=== PATIENT | male | born 1975 | race American Indian/Alaskan Native ===

== ENCOUNTER 2021-11-06 12:28 | Inpatient (IN) | payer SELFPAY ==
--- NOTE | 2021-11-06 13:43 | XRay Report ---
CHEST 2 VIEWS INDICATION: chest pain, hemoptysis. COMPARISON: None. FINDINGS: Support devices: None. Heart: Within normal limits. Lungs/Pleura: Masslike consolidation within the inferior aspect of the right upper lobe laterally. Le ft lung clear. No significant pleural effusion. IMPRESSION: Masslike infiltrate right upper lobe. Tumor versus infection. This could be better evalu ated with contrast-enhanced CT chest as clinically indicated. Signer Name: Samuel Mckinley MD Signed: 11/06/2021 1:38 PM Workstation Name: [employer]
[2021-11-06 14:58] LABS: Alanine Aminotransferase 20 units/L (7-56); BUN/Creatinine Ratio 10; Blood Urea Nitrogen 13 mg/dL (9-20); Calcium 8.9 mg/dL (8.4-10.2); Hemolysis Index 11
[2021-11-06 15:01] LABS: Hematocrit 46.2 % (35.5-45.6); Hemoglobin 14.8 gm/dl (11.8-15.2); Mean Corpuscular HGB Conc 32 % (32-34); Mean Corpuscular Volume 83 fl (84-94); Platelet Count 176 K/mm3 (140-440); Red Blood Count 5.53 M/mm3 (3.65-5.03); Red Cell Distribution Width 13.8 % (13.2-15.2)
[2021-11-06] MEDS ORDERED: SODIUM CHLORIDE 0.9% 1000 ML 1,000 ML IV ONE ×2 (15:27→17:39)
[2021-11-06] MEDS ORDERED: fentaNYL 100 MCG/2 ML INJ IV ONE (15:31)
--- NOTE | 2021-11-06 15:32 | Emergency Department Report ---
ED General Adult HPI - General Chief complaint: Chest Pain Stated complaint: CHEST PAIN/COUHING UP BLOOD Time Seen by Provider: 11/06/21 15:16 Source: patient Mode of arrival: Ambulatory Limitations: No Limitations - History of Present Illness Initial comments: Patient presents with a 4-day history of right-sided chest pain. Pain is pleuritic and sharp in nature. He cannot get comfortable. He does feel short of breath. He has had a cough and is actually been coughing up blood. This is been streaks and flecks of blood. He has had subjective fevers and chills. He has had trouble breathing. Pain does not radiate or migrate. It is only locali zed to the right side. He has no pain or swelling in the legs. There is no history of recent travel trauma. He has had no Covid exposure. - Related Data Allergies Allergy/AdvReac Type Severity Reaction Status Date / Time No Known Allergies Allergy Unverified 11/06/21 12:57 ED Review of Systems ROS: Stated complaint: CHEST PAIN/COUHING UP BLOOD Other details as noted in HPI Comment: All other systems reviewed and negative Constitutional: fever (Subjective) Eyes: denies: eye pain ENT: denies: throat pain Respiratory: see HPI Cardiovascular: as per HPI Endocrine: unexplained weight loss Gastrointestinal: denies: abdominal pain Genitourinary: denies: dysuria Musculoskeletal: denies: back pain Skin: denies: rash Neurological: denies: headache Hematological/Lymphatic: denies: easy bruising ED Past Medical Hx - Past Medical History Previous Medical History?: No - Family History Family history: no significant ED Physical Exam - General Limitations: No Limitations, Other (Pulse ox noted and normal which trends down) General appearance: alert, in distress (Uncomfortable) - Head Head exam: Present: atraumatic, normocephalic - Eye Eye exam: Present: normal appearance, PERRL, EOMI - ENT ENT exam: Present: normal orophraynx, normal external ear exam - Neck Neck exam: Present: normal inspection. Absent: meningismus - Respiratory Respiratory exam: Present: normal lung sounds bilaterally, respiratory distress (Mild) - Cardiovascular Cardiovascular Exam: Present: normal rhythm, tachycardia - GI/Abdominal GI/Abdominal exam: Present: soft. Absent: distended - Extremities Exam Extremities exam: Present: normal capillary refill - Back Exam Back exam: Absent: CVA tenderness (R), CVA tenderness (L) - Neurological Exam Neurological exam: Present: alert, oriented X3, CN II-XII intact, normal gait. Absent: motor sensory deficit - Psychiatric Psychiatric exam: Present: normal affect, normal mood - Skin Skin exam: Present: warm, dry ED Course Vital Signs 11/06/21 11/06/21 11/06/21 12:59 15:17 15:31 Temperature 99.4 F Pulse Rate 120 H 115 H Respiratory 20 30 H Rate Blood Pressure 113/74 135/84 O2 Sat by Pulse 98 97 97 Oximetry 11/06/21 11/06/21 11/06/21 15:45 16:01 16:15 Temperature Pulse Rate 117 H 113 H 113 H Respiratory 35 H 29 H 25 H Rate Blood Pressure 124/78 137/81 125/81 O2 Sat by Pulse 97 96 96 Oximetry 11/06/21 11/06/21 11/06/21 16:30 16:45 17:01 Temperature Pulse Rate 119 H 120 H 117 H Respiratory 30 H 33 H 26 H Rate Blood Pressure 125/81 O2 Sat by Pulse 94 98 95 Oximetry 11/06/21 11/06/21 11/06/21 17:15 17:31 17:44 Temperature 101.1 F H Pulse Rate 120 H 119 H Respiratory 22 27 H Rate Blood Pressure 133/74 O2 Sat by Pulse 95 94 Oximetry 11/06/21 11/06/21 11/06/21 17:45 18:01 18:15 Temperature Pulse Rate 122 H 117 H 119 H Respiratory 25 H 35 H 32 H Rate Blood Pressure 133/74 140/81 140/81 O2 Sat by Pulse 95 97 78 L Oximetry - Reevaluation(s) Reevaluation #1: 11/06/21 15:32 CT was ordered. Labs noted. Reevaluation #2: 11/06/21 18:41 CT has now been noted. Blood cultures and lactate have been ordered. He does h ave features of sepsis but no evidence of severe sepsis or septic shock. Antibiotics have been ordered. Case was discussed with the hospitalist and he will admit ED Medical Decision Making - Lab Data Result diagrams: 11/06/21 14:21 11/06/21 14:21 Rhythm strip: Sinus tachycardia without ectopy per monitor observe 10 seconds. - EKG Data -: EKG Interpreted by [facility] - EKG Data When compared to previous EKG there are: previous EKG unavailable 11/06/21 17:01 1304-EKG shows sinus tachycardia at 120. QRS is normal at 83. QT corrected is normal at 387. There is ST depression in 2 with T wave inversions in 3 and aVF. Patient has ST depression with T wave inversions in V4 through V6. There is no ST elevation to suggest STEMI. - Radiology Data Radiology results: report reviewed - Medical Decision Making Patient presents with right-sided chest pain. He had fever and leukocytosis. He has evidence of sepsis with a lobar pneumonia. He will be admitted for ongoing treatment and management. There is no clinical suspicion for pulmonary embolism. There is no pulmonary infarct. There is no tumor. Critical Care Time: No Critical care attestation.: If time is entered above; I have spent that time in minutes in the direct care of this critically ill patient, excluding procedure time. ED Disposition Clinical Impression: Right upper lobe pneumonia, Sepsis Disposition: ADMITTED INPATIENT Is pt being admited?: Yes Condition: Stable Instructions: Bacterial Pneumonia (ED)
[2021-11-06 16:20] LABS: Band Neutrophils # (Manual) 2.1 K/mm3; Basophils % (Manual) 0 % (0.0-1.8); Eosinophils % (Manual) 0 % (0.0-4.3); Large Platelets Few; Platelet Estimate Consistent w Auto; RBC Morphology Normal; Total Cells Counted 100; Toxic Granulation 1+
[2021-11-06] MEDS ORDERED: ACETAMINOPHEN 500 MG TAB PO ONE (17:40)
--- NOTE | 2021-11-06 18:23 | Cat Scan Report ---
CT CHEST WITH CONTRAST INDICATION / CLINICAL INFORMATION: abnormal cxr. TECHNIQUE: Axial CT images were obtained through the chest after Omnipaque 300, 100 cc IV contrast. A ll CT scans at this location are performed using CT dose reduction for ALARA by means of automated ex posure control. COMPARISON: None available. FINDINGS: HEART: No significant abnormality. CORONARY ARTERY CALCIFICATION: None. THORACIC AORTA: No significant abnormality. MEDIASTINUM / AUBREY: Prominent nodes at the right paratracheal region with the largest measuring 1.7 c m in the greatest short axis dimension. PLEURA: No pleural effusion. No pneumothorax. LUNGS: Dense lobar pneumonia inferior aspect right upper lobe. ADDITIONAL FINDINGS: None. UPPER ABDOMEN: Large, fatty liver. SKELETAL SYSTEM: No significant abnormality. IMPRESSION: 1. Lobar pneumonia right upper lobe inferiorly. Recommend follow-up to ensure clearing. 2. Enlarged mediastinal nodes are likely reactive. Signer Name: Samuel Mckinley MD Signed: 11/06/2021 6:18 PM Workstation Name: [id number]
[2021-11-06] MEDS ORDERED: SODIUM CHLORIDE 0.9% 1000 ML IV SOLN IV ONE (18:33)
[2021-11-06] MEDS ORDERED: AZITHROMYCIN/NS 500 MG/250 ML 500 MG/250 ML BAG IV ONE (18:33)
--- NOTE | 2021-11-06 20:32 | History and Physical Report ---
History of Present Illness Date of examination: 11/06/21 Date of admission: 2021 Chief complaint: Right upper chest pain and cough for 1 day History of present illness: 46-year-old -[place] male with no significant past medical history presents with 4-day history of right-sided chest pain which is sharp in nature. Cannot get comfortable. Also feels short of breath. Cough occasionally productive of blood-tinged sputum. Fever and chills present. Patient has had trouble breathing. Pain does not radiate. No diaphoresis. No left-sided chest pain. No nausea or vomiting. No significant past medical history. Pain is more with a deep inspiration. - Past Medical History Previous Medical History?: No Past surgical history No - Family History Family history: no significant social history no significant Review of Systems ROS: Stated complaint: CHEST PAIN/COUHING UP BLOOD Other details as noted in HPI Comment: All other systems reviewed and negative Constitutional: fever (Subjective) Eyes: denies: eye pain ENT: denies: throat pain Respiratory: see HPI Cardiovascular: as per HPI Endocrine: unexplained weight loss Gastrointestinal: denies: abdominal pain Genitourinary: denies: dysuria Musculoskeletal: denies: back pain Skin: denies: rash Neurological: denies: headache Hematological/Lymphatic: denies: easy bruising Medications and Allergies Allergies Allergy/AdvReac Type Severity Reaction Status Date / Time No Known Allergies Allergy Unverified 11/06/21 12:57 Home Medications Medication Instructions Recorded Confirmed Last Taken Type No Known Home Medications [No 11/06/21 11/06/21 Unknown History Reported Home Medications] Exam - Constitutional Vitals: Temp Pulse Resp BP Pulse Ox 101.1 F H 107 H 18 121/67 95 11/06/21 17:44 11/06/21 19:37 11/06/21 19:37 11/06/21 19:37 11/06/21 19:37 General appearance: Present: mild distress, well-nourished - EENT Eyes: Present: PERRL ENT: hearing intact, clear oral mucosa - Neck Neck: Present: supple, normal ROM - Respiratory Respiratory effort: normal Respiratory: right: rales (Right influenza clavicle region), bilateral: CTA, rhonchi - Cardiovascular Heart rate: 98 Rhythm: regular Heart Sounds: Present: S1 & S2. Absent: rub, click - Extremities Extremities: pulses symmetrical, No edema Peripheral Pulses: within normal limits - Abdominal General gastrointestinal: Present: soft, non-tender, non-distended, normal bowel sounds Male genitourinary: Present: normal - Rectal Rectal Exam: deferred - Integumentary Integumentary: Present: clear, warm, dry - Musculoskeletal Musculoskeletal: gait normal, strength equal bilaterally - Psychiatric Psychiatric: appropriate mood/affect, intact judgment & insight - Neurologic Neurologic: CNII-XII intact, moves all extremities HEART Score - HEART Score Troponin: Troponin T < 0.010 ng/mL (0.00-0.029) 11/06/21 14:21 Results - Labs CBC & Chem 7: 11/07/21 06:08 11/06/21 14:21 Labs: Laboratory Last Values WBC 26.5 K/mm3 (4.5-11.0) H 11/06/21 14:21 RBC 5.53 M/mm3 (3.65-5.03) H 11/06/21 14:21 Hgb 14.8 gm/dl (11.8-15.2) 11/06/21 14:21 Hct 46.2 % (35.5-45.6) H 11/06/21 14:21 MCV 83 fl (84-94) L 11/06/21 14:21 MCH 27 pg (28-32) L 11/06/21 14:21 MCHC 32 % (32-34) 11/06/21 14:21 RDW 13.8 % (13.2-15.2) 11/06/21 14:21 Plt Count 176 K/mm3 (140-440) 11/06/21 14:21 Add Manual Diff Complete 11/06/21 14:21 Total Counted 100 11/06/21 14:21 Seg Neuts % (Manual) 74.0 % (40.0-70.0) H 11/06/21 14:21 Band Neutrophils % 8.0 % 11/06/21 14:21 Lymphocytes % (Manual) 7.0 % (13.4-35.0) L 11/06/21 14:21 Reactive Lymphs % (Man) 0 % 11/06/21 14:21 Monocytes % (Manual) 9.0 % (0.0-7.3) H 11/06/21 14:21 Eosinophils % (Manual) 0 % (0.0-4.3) 11/06/21 14:21 Basophils % (Manual) 0 % (0.0-1.8) 11/06/21 14:21 Metamyelocytes % 2.0 % 11/06/21 14:21 Myelocytes % 0 % 11/06/21 14:21 Promyelocytes % 0 % 11/06/21 14:21 Blast Cells % 0 % 11/06/21 14:21 Nucleated RBC % Not Reportable 11/06/21 14:21 Seg Neutrophils # Man 19.6 K/mm3 (1.8-7.7) H 11/06/21 14:21 Band Neutrophils # 2.1 K/mm3 11/06/21 14:21 Lymphocytes # (Manual) 1.9 K/mm3 (1.2-5.4) 11/06/21 14:21 Abs React Lymphs (Man) 0.0 K/mm3 11/06/21 14:21 Monocytes # (Manual) 2.4 K/mm3 (0.0-0.8) H 11/06/21 14:21 Eosinophils # (Manual) 0.0 K/mm3 (0.0-0.4) 11/06/21 14:21 Basophils # (Manual) 0.0 K/mm3 (0.0-0.1) 11/06/21 14:21 Metamyelocytes # 0.5 K/mm3 11/06/21 14:21 Myelocytes # 0.0 K/mm3 11/06/21 14:21 Promyelocytes # 0.0 K/mm3 11/06/21 14:21 Blast Cells # 0.0 K/mm3 11/06/21 14:21 WBC Morphology Not Reportable 11/06/21 14:21 Hypersegmented Neuts Not Reportable 11/06/21 14:21 Hyposegmented Neuts Not Reportable 11/06/21 14:21 Hypogranular Neuts Not Reportable 11/06/21 14:21 Smudge Cells Not Reportable 11/06/21 14:21 Toxic Granulation 1+ 11/06/21 14:21 Toxic Vacuolation Not Reportable 11/06/21 14:21 Dohle Bodies Not Reportable 11/06/21 14:21 Pelger-Huet Anomaly Not Reportable 11/06/21 14:21 Christina Rods Not Reportable 11/06/21 14:21 Platelet Estimate Consistent w auto 11/06/21 14:21 Clumped Platelets Not Reportable 11/06/21 14:21 Plt Clumps, EDTA Not Reportable 11/06/21 14:21 Large Platelets Few 11/06/21 14:21 Giant Platelets Not Reportable 11/06/21 14:21 Platelet Satelliting Not Reportable 11/06/21 14:21 Plt Morphology Comment Not Reportable 11/06/21 14:21 RBC Morphology Normal 11/06/21 14:21 Dimorphic RBCs Not Reportable 11/06/21 14:21 Polychromasia Not Reportable 11/06/21 14:21 Hypochromasia Not Reportable 11/06/21 14:21 Poikilocytosis Not Reportable 11/06/21 14:21 Anisocytosis Not Reportable 11/06/21 14:21 Microcytosis Not Reportable 11/06/21 14:21 Macrocytosis Not Reportable 11/06/21 14:21 Spherocytes Not Reportable 11/06/21 14:21 Pappenheimer Bodies Not Reportable 11/06/21 14:21 Sickle Cells Not Reportable 11/06/21 14:21 Target Cells Not Reportable 11/06/21 14:21 Tear Drop Cells Not Reportable 11/06/21 14:21 Ovalocytes Not Reportable 11/06/21 14:21 Helmet Cells Not Reportable 11/06/21 14:21 Adams-Kon[place] Bodies Not Reportable 11/06/21 14:21 Whitney Rings Not Reportable 11/06/21 14:21 [place] Cells Not Reportable 11/06/21 14:21 Bite Cells Not Reportable 11/06/21 14:21 Crenated Cell Not Reportable 11/06/21 14:21 Elliptocytes Not Reportable 11/06/21 14:21 Acanthocytes (Spur) Not Reportable 11/06/21 14:21 Rouleaux Not Reportable 11/06/21 14:21 Hemoglobin C Crystals Not Reportable 11/06/21 14:21 Schistocytes Not Reportable 11/06/21 14:21 Malaria parasites Not Reportable 11/06/21 14:21 Antonio Bodies Not Reportable 11/06/21 14:21 Hem Pathologist Commnt No 11/06/21 14:21 Sodium 132 mmol/L (137-145) L 11/06/21 14:21 Potassium 3.8 mmol/L (3.6-5.0) 11/06/21 14:21 Chloride 94.2 mmol/L (98-107) L 11/06/21 14:21 Carbon Dioxide 21 mmol/L (22-30) L 11/06/21 14:21 Anion Gap 21 mmol/L 11/06/21 14:21 BUN 13 mg/dL (9-20) 11/06/21 14:21 Creatinine 1.3 mg/dL (0.8-1.3) 11/06/21 14:21 Estimated GFR > 60 ml/min 11/06/21 14:21 BUN/Creatinine Ratio 10 % 11/06/21 14:21 Glucose 142 mg/dL (75-100) H 11/06/21 14:21 Lactic Acid 2.30 mmol/L (0.7-2.0) H* 11/06/21 18:41 Calcium 8.9 mg/dL (8.4-10.2) 11/06/21 14:21 Total Bilirubin 1.70 mg/dL (0.1-1.2) H 11/06/21 14:21 AST 19 units/L (5-40) 11/06/21 14:21 ALT 20 units/L (7-56) 11/06/21 14:21 Alkaline Phosphatase 74 units/L (35-129) 11/06/21 14:21 Troponin T < 0.010 ng/mL (0.00-0.029) 11/06/21 14:21 Total Protein 8.1 g/dL (6.3-8.2) 11/06/21 14:21 Albumin 4.0 g/dL (3.9-5) 11/06/21 14:21 Albumin/Globulin Ratio 1.0 % 11/06/21 14:21 Short CBC 11/06/21 Range/Units 14:21 WBC 26.5 H (4.5-11.0) K/mm3 Hgb 14.8 (11.8-15.2) gm/dl Hct 46.2 H (35.5-45.6) % Plt Count 176 (140-440) K/mm3 BMP 11/06/21 14:21 Sodium 132 L Potassium 3.8 Chloride 94.2 L Carbon Dioxide 21 L BUN 13 Creatinine 1.3 Glucose 142 H Calcium 8.9 Cardiac Enzymes 11/06/21 Range/Units 14:21 Troponin T < 0.010 (0.00-0.029) ng/mL Liver Function 11/06/21 Range/Units 14:21 Total Bilirubin 1.70 H (0.1-1.2) mg/dL AST 19 (5-40) units/L ALT 20 (7-56) units/L Alkaline Phosphatase 74 (35-129) units/L Albumin 4.0 (3.9-5) g/dL - Imaging and Cardiology EKG: report reviewed Chest x-ray: report reviewed Imaging and Cardiology: Chest x-ray Masslike infiltrate right upper lobe. Tumor versus infection. This could be better evaluated with contrast-enhanced CT chest as clinically indicated 6 CT of the chest with contrast Lobar pneumonia right upper lobe inferiorly. Recommend follow-up to ensure clearing Enlarged mediastinal nodes are likely reactive Assessment and Plan Advance Directives: Yes (Full code) VTE prophylaxis?: Chemical Plan of care discussed with patient/family: Yes - Patient Problems (1) Acute respiratory failure with hypoxia Current Visit: Yes Status: Acute Plan to address problem: Patient is hypoxic on room air Improved with 2 to 3 L of nasal cannula oxygen Right upper lobe pneumonia (2) Right upper lobe pneumonia Current Visit: Yes Status: Acute Plan to address problem: Patient initiated on IV Zithromax and IV ceftriaxone Community-acquired pneumonia COVID to be ruled out Unlikely (3) Sepsis Current Visit: Yes Status: Acute Plan to address problem: Patient has a high white count No hypotension IV antibiotics for now Lactic acid elevated (4) DVT prophylaxis Current Visit: Yes Status: Acute Plan to address problem: On anticoagulation and GI prophylaxis (5) Advance care planning Current Visit: Yes Status: Acute Plan to address problem: Disease education conducted, care plan discussed, diagnosis discussed, prognosis discussed. Patient is full code. Patient acknowledges understanding and agreement with care plan. +30 minutes.
[2021-11-06] MEDS ORDERED: ACETAMINOPHEN 325 MG TAB PO PRN (20:39)
[2021-11-06] MEDS ORDERED: ONDANSETRON 4 MG/2 ML INJ IV PRN (20:39)
[2021-11-06] MEDS ORDERED: METOCLOPRAMIDE 10 MG/2 ML INJ IV PRN (20:42)
[2021-11-06] MEDS ORDERED: oxyCODONE /ACETAMINOPHEN 5-325MG TAB PO PRN (20:42)
[2021-11-06] MEDS ORDERED: MORPHINE 2 MG/1 ML INJ IV PRN (20:42)
[2021-11-06] MEDS ORDERED: SODIUM CHLORIDE 0.9% 1000 ML 1,000 ML IV SCH (20:45)
[2021-11-06] MEDS ORDERED: IPRATROPIUM/ALBUTEROL SULFATE 3 ML AMPUL.NEB IH PRN (20:46)
[2021-11-06] MEDS ORDERED: cefTRIAXone/NS 2 GM/100 ML 2 GM/100 ML BAG IV SCH (21:00)
[2021-11-06] MEDS ORDERED: AZITHROMYCIN/NS 500 MG/250 ML 500 MG/250 ML BAG IV SCH (21:00)
[2021-11-06] MEDS: HEPARIN 5,000 UNIT/1 ML VIAL SUB-Q SCH (22:57)
[2021-11-06] MEDS: dexAMETHasone 4 MG/ML VIAL IV SCH (22:57)
[2021-11-07] MEDS ORDERED: SODIUM CHLORIDE 0.9% 1000 ML 1,000 ML IV ONE (00:10)
[2021-11-07 06:27] LABS: Hematocrit 40.6 % (35.5-45.6); Hemoglobin 13.8 gm/dl (11.8-15.2); Mean Corpuscular HGB Conc 34 % (32-34); Mean Corpuscular Volume 83 fl (84-94); Platelet Count 157 K/mm3 (140-440); Red Blood Count 4.89 M/mm3 (3.65-5.03); Red Cell Distribution Width 13.7 % (13.2-15.2)
[2021-11-07 07:08] LABS: Alanine Aminotransferase 19 units/L (7-56); Albumin 3.6 g/dL (3.9-5); BUN/Creatinine Ratio 13; Blood Urea Nitrogen 13 mg/dL (9-20); Calcium 8.7 mg/dL (8.4-10.2); Hemolysis Index 1
[2021-11-07 07:17] LABS: Total Cells Counted 100
[2021-11-07 07:27] LABS: Band Neutrophils # (Manual) 6.7 K/mm3; Basophils % (Manual) 0 % (0.0-1.8); Eosinophils % (Manual) 0 % (0.0-4.3); Myelocytes # (Manual) 0.2 K/mm3
[2021-11-07 07:29] LABS: Large Platelets Few; Platelet Estimate Consistent w Auto; RBC Morphology Normal
--- NOTE | 2021-11-07 08:45 | Progress Note ---
Assessment and Plan Assessment and plan: (1) Acute respiratory failure with hypoxia Current Visit: Yes Status: Acute Plan to address problem: Patient is hypoxic on room air on admissoin Was initially on 2-3 L NC, now on room air again resting comfortably. Right upper lobe pneumonia (3) Severe Sepsis POA Current Visit: Yes Status: Acute Plan to address problem: leukocytosis 26K on admission, LA: 2.3 on admission. febrile, tachycardic No hypotension BCx, SCx, UCx IV Ceftriaxone and IV azithromycin IV fluids given on admission, can tolerate po, encourage po hydration. (2) Right upper lobe pneumonia Current Visit: Yes Status: Acute Plan to address problem: Community-acquired pneumonia CT Chest: Duoneb prn COVID negative Patient initiated on IV Zithromax and IV ceftriaxone (4) DVT prophylaxis Current Visit: Yes Status: Acute Plan to address problem: On anticoagulation and GI prophylaxis (5) Advance care planning Current Visit: Yes Status: Acute Plan to address problem: Disease education conducted, care plan discussed, diagnosis discussed, prognosis discussed. Patient is full code. Patient acknowledges understanding and agreement with care plan. +30 minutes. Dispo: Observe overnight. Plan for early discharge tomorrow AM. History Interval history: Doing well on encounter. Denies any issues with shortness of breath, fevers, chills. Hospitalist Physical - Physical exam Narrative exam: Physical Exam: VITAL SIGNS: Reviewed. GENERAL: The patient appears normally developed, Vital signs as documented. HEAD: No signs of head trauma. EYES: Pupils are equal. Extraocular motions intact. EARS: Hearing grossly intact. MOUTH: Oropharynx is normal. NECK: No adenopathy, no JVD. CHEST: Poor air movement in right upper lobe. CARDIAC: Regular rate and rhythm. S1 and S2, without murmurs, gallops, or rubs. VASCULAR: No Edema. Peripheral pulses normal and equal in all extremities. ABDOMEN: Soft, non tender and non distended. No rebound or guarding, and no masses palpated. Bowel Sounds normal. MUSCULOSKELETAL: Good range of motion of all major joints. Extremities without clubbing, cyanosis or edema. NEUROLOGIC EXAM: Alert and oriented x 4. no focal sensory or strength deficits. PSYCHIATRIC: Mood normal. SKIN: detail exam as documented in skin assessment - Constitutional Vitals: Temp Pulse Resp BP Pulse Ox 98.1 F 89 16 139/50 94 11/07/21 05:11 11/07/21 05:11 11/07/21 05:11 11/07/21 05:11 11/07/21 05:11 General appearance: Present: mild distress, well-nourished HEART Score - HEART Score Troponin: Troponin T < 0.010 ng/mL (0.00-0.029) 11/06/21 14:21 Results - Labs CBC & Chem 7: 11/07/21 06:08 11/07/21 06:08 Labs: Laboratory Last Values WBC 23.8 K/mm3 (4.5-11.0) H 11/07/21 06:08 RBC 4.89 M/mm3 (3.65-5.03) 11/07/21 06:08 Hgb 13.8 gm/dl (11.8-15.2) 11/07/21 06:08 Hct 40.6 % (35.5-45.6) 11/07/21 06:08 MCV 83 fl (84-94) L 11/07/21 06:08 MCH 28 pg (28-32) 11/07/21 06:08 MCHC 34 % (32-34) 11/07/21 06:08 RDW 13.7 % (13.2-15.2) 11/07/21 06:08 Plt Count 157 K/mm3 (140-440) 11/07/21 06:08 Add Manual Diff Complete 11/07/21 06:08 Total Counted 100 11/07/21 06:08 Seg Neutrophils % Sales And Service Associate 11/07/21 06:08 Seg Neuts % (Manual) 61.0 % (40.0-70.0) 11/07/21 06:08 Band Neutrophils % 28.0 % 11/07/21 06:08 Lymphocytes % (Manual) 3.0 % (13.4-35.0) L 11/07/21 06:08 Reactive Lymphs % (Man) 2.0 % 11/07/21 06:08 Monocytes % (Manual) 2.0 % (0.0-7.3) 11/07/21 06:08 Eosinophils % (Manual) 0 % (0.0-4.3) 11/07/21 06:08 Basophils % (Manual) 0 % (0.0-1.8) 11/07/21 06:08 Metamyelocytes % 3.0 % 11/07/21 06:08 Myelocytes % 1.0 % 11/07/21 06:08 Promyelocytes % 0 % 11/07/21 06:08 Blast Cells % 0 % 11/07/21 06:08 Nucleated RBC % Not Reportable 11/07/21 06:08 Seg Neutrophils # Man 14.5 K/mm3 (1.8-7.7) H 11/07/21 06:08 Band Neutrophils # 6.7 K/mm3 11/07/21 06:08 Lymphocytes # (Manual) 0.7 K/mm3 (1.2-5.4) L 11/07/21 06:08 Abs React Lymphs (Man) 0.5 K/mm3 11/07/21 06:08 Monocytes # (Manual) 0.5 K/mm3 (0.0-0.8) 11/07/21 06:08 Eosinophils # (Manual) 0.0 K/mm3 (0.0-0.4) 11/07/21 06:08 Basophils # (Manual) 0.0 K/mm3 (0.0-0.1) 11/07/21 06:08 Metamyelocytes # 0.7 K/mm3 11/07/21 06:08 Myelocytes # 0.2 K/mm3 11/07/21 06:08 Promyelocytes # 0.0 K/mm3 11/07/21 06:08 Blast Cells # 0.0 K/mm3 11/07/21 06:08 WBC Morphology Not Reportable 11/07/21 06:08 Hypersegmented Neuts Not Reportable 11/07/21 06:08 Hyposegmented Neuts Not Reportable 11/07/21 06:08 Hypogranular Neuts Not Reportable 11/07/21 06:08 Smudge Cells Not Reportable 11/07/21 06:08 Toxic Granulation Not Reportable 11/07/21 06:08 Toxic Vacuolation Not Reportable 11/07/21 06:08 Dohle Bodies Not Reportable 11/07/21 06:08 Pelger-Huet Anomaly Not Reportable 11/07/21 06:08 Christina Rods Not Reportable 11/07/21 06:08 Platelet Estimate Consistent w auto 11/07/21 06:08 Clumped Platelets Not Reportable 11/07/21 06:08 Plt Clumps, EDTA Not Reportable 11/07/21 06:08 Large Platelets Few 11/07/21 06:08 Giant Platelets Not Reportable 11/07/21 06:08 Platelet Satelliting Not Reportable 11/07/21 06:08 Plt Morphology Comment Not Reportable 11/07/21 06:08 RBC Morphology Normal 11/07/21 06:08 Dimorphic RBCs Not Reportable 11/07/21 06:08 Polychromasia Not Reportable 11/07/21 06:08 Hypochromasia Not Reportable 11/07/21 06:08 Poikilocytosis Not Reportable 11/07/21 06:08 Anisocytosis Not Reportable 11/07/21 06:08 Microcytosis Not Reportable 11/07/21 06:08 Macrocytosis Not Reportable 11/07/21 06:08 Spherocytes Not Reportable 11/07/21 06:08 Pappenheimer Bodies Not Reportable 11/07/21 06:08 Sickle Cells Not Reportable 11/07/21 06:08 Target Cells Not Reportable 11/07/21 06:08 Tear Drop Cells Not Reportable 11/07/21 06:08 Ovalocytes Not Reportable 11/07/21 06:08 Helmet Cells Not Reportable 11/07/21 06:08 [place] Bodies Not Reportable 11/07/21 06:08 [place] Rings Not Reportable 11/07/21 06:08 [place] Cells Not Reportable 11/07/21 06:08 Bite Cells Not Reportable 11/07/21 06:08 Crenated Cell Not Reportable 11/07/21 06:08 Elliptocytes Not Reportable 11/07/21 06:08 Acanthocytes (Spur) Not Reportable 11/07/21 06:08 Rouleaux Not Reportable 11/07/21 06:08 Hemoglobin C Crystals Not Reportable 11/07/21 06:08 Schistocytes Not Reportable 11/07/21 06:08 Malaria parasites Not Reportable 11/07/21 06:08 [place] Bodies Not Reportable 11/07/21 06:08 Hem Pathologist Commnt No 11/07/21 06:08 D-Dimer 474.84 ng/mlDDU (0-234) H 11/07/21 07:51 Sodium 134 mmol/L (137-145) L 11/07/21 06:08 Potassium 3.7 mmol/L (3.6-5.0) 11/07/21 06:08 Chloride 98.9 mmol/L (98-107) 11/07/21 06:08 Carbon Dioxide 22 mmol/L (22-30) 11/07/21 06:08 Anion Gap 17 mmol/L 11/07/21 06:08 BUN 13 mg/dL (9-20) 11/07/21 06:08 Creatinine 1.0 mg/dL (0.8-1.3) 11/07/21 06:08 Estimated GFR > 60 ml/min 11/07/21 06:08 BUN/Creatinine Ratio 13 % 11/07/21 06:08 Glucose 201 mg/dL (75-100) H 11/07/21 06:08 Lactic Acid 2.50 mmol/L (0.7-2.0) H* 11/07/21 06:47 Calcium 8.7 mg/dL (8.4-10.2) 11/07/21 06:08 Ferritin 403.3 ng/mL (30.0-300.0) H 11/07/21 07:51 Total Bilirubin 1.30 mg/dL (0.1-1.2) H 11/07/21 06:08 AST 17 units/L (5-40) 11/07/21 06:08 ALT 19 units/L (7-56) 11/07/21 06:08 Alkaline Phosphatase 71 units/L (35-129) 11/07/21 06:08 Lactate Dehydrogenase 145 units/L (91-180) 11/07/21 06:08 Troponin T < 0.010 ng/mL (0.00-0.029) 11/06/21 14:21 Total Protein 7.5 g/dL (6.3-8.2) 11/07/21 06:08 Albumin 3.6 g/dL (3.9-5) L 11/07/21 06:08 Albumin/Globulin Ratio 0.9 % 11/07/21 06:08 Microbiology: Microbiology 11/06/21 18:41 Peripheral/Venous Blood Culture - Preliminary Culture in Progress 11/06/21 18:50 Peripheral/Venous Blood Culture - Preliminary Culture in Progress Mann/IV: Voiding Method Toilet Active Medications - Current Medications Current Medications: Generic Name Dose Route Start Last Admin Trade Name Freq PRN Reason Stop Dose Admin Acetaminophen 650 mg 11/06/21 20:39 Acetaminophen 325 Mg Tab PO Q4H PRN Pain MILD(1-3)/Fever >100.5/COLLIER Albuterol/Ipratropium 1 ampul 11/06/21 20:46 Ipratropium/Albuterol Sulfate 3 Ml Ampul.Neb IH Q3H PRN Wheezing Azithromycin 500 mg 11/07/21 22:00 Azithromycin 250 Mg Tab PO 11/10/21 22:01 QHS LISA Dexamethasone 8 mg 11/06/21 21:00 11/06/21 22:57 Dexamethasone 4 Mg/Ml Vial IV 8 mg Q24H LISA Administration Heparin Sodium (Porcine) 5,000 unit 11/06/21 22:00 11/06/21 22:57 Heparin 5,000 Unit/1 Ml Vial SUB-Q 5,000 unit Q12HR LISA Administration Ceftriaxone Sodium 2 gm in 100 mls @ 200 mls/hr 11/07/21 22:00 Rocephin/Ns 2 Gm/100 Ml IV 11/10/21 22:29 Q24H [facility] Protocol Metoclopramide HCl 10 mg 11/06/21 20:42 Metoclopramide 10 Mg/2 Ml Inj IV Q6H PRN Nausea And Vomiting Morphine Sulfate 2 mg 11/06/21 20:42 Morphine 2 Mg/1 Ml Inj IV Q4H PRN Pain, Moderate (4-6) Ondansetron HCl 4 mg 11/06/21 20:39 Ondansetron 4 Mg/2 Ml Inj IV Q3H PRN Nausea And Vomiting Oxycodone/Acetaminophen 1 tab 11/06/21 20:42 Oxycodone /Acetaminophen 5-325mg Tab PO Q6H PRN Pain, Moderate (4-6) Sodium Chloride 10 ml 11/06/21 22:00 11/06/21 22:57 Sodium Chloride 0.9% 10 Ml Flush Syringe IV 10 ml BID LISA Administration Sodium Chloride 10 ml 11/06/21 20:39 Sodium Chloride 0.9% 10 Ml Flush Syringe IV PRN PRN LINE FLUSH
--- NOTE | 2021-11-07 09:23 | Electrocardiograph Report ---
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
[2021-11-07] MEDS: HEPARIN 5,000 UNIT/1 ML VIAL SUB-Q SCH ×2 (09:36→21:54)
[2021-11-07 09:48] LABS: C-Reactive Protein 36.6 mg/dL (0.00-1.30)
[2021-11-07] MEDS ORDERED: AZITHROMYCIN/NS 500 MG/250 ML 500 MG/250 ML BAG IV SCH (19:30)
[2021-11-07 21:45] VITALS: BP 122/83
[2021-11-07] MEDS: dexAMETHasone 4 MG/ML VIAL IV SCH (21:53)
[2021-11-07] MEDS ORDERED: AZITHROMYCIN 250 MG TAB PO SCH (22:00)
[2021-11-07] MEDS ORDERED: cefTRIAXone/NS 2 GM/100 ML 2 GM/100 ML BAG IV SCH (22:00)
[2021-11-08 05:46] LABS: Basophils % (Auto) 0.1 % (0.0-1.8); Hematocrit 41.7 % (35.5-45.6); Hemoglobin 13.9 gm/dl (11.8-15.2); Mean Corpuscular HGB Conc 33 % (32-34); Mean Corpuscular Volume 84 fl (84-94); Platelet Count 178 K/mm3 (140-440); Red Blood Count 4.97 M/mm3 (3.65-5.03); Red Cell Distribution Width 13.9 % (13.2-15.2)
[2021-11-08 05:52] LABS: BUN/Creatinine Ratio 17; Blood Urea Nitrogen 15 mg/dL (9-20); Hemolysis Index 5
--- NOTE | 2021-11-08 08:54 | Discharge Summary ---
Providers - Providers Date of Admission: 11/06/21 20:39 Date of discharge: 11/08/21 Attending physician: MARK REZA MD Primary care physician: FLOORWALKER Hospitalization Reason for admission: Shortness of breath Condition: Stable Hospital course: HPI History of present illness: 46-year-old -[place] male with no significant past medical history presents with 4-day history of right-sided chest pain which is sharp in nature. Cannot get comfortable. Also feels short of breath. Cough occasionally product drew of blood-tinged sputum. Fever and chills present. Patient has had trouble breathing. Pain does not radiate. No diaphoresis. No left-sided chest pain. No nausea or vomiting. No significant past medical history. Pain is more with a deep inspiration. Hospital Course Patient was admitted for shortness of breath secondary to sepsis/community- acquired pneumonia. Patient was febrile T-max 101.1F, leukocytosis on admission 26,000, chest x-ray and CT chest confirmatory for right upper lobe pneumonia. Patient was placed initially on nasal cannula 2 L/min. He was initiated on ceftriaxone IV and azithromycin IV. Blood culture, sputum culture demonstrated no growth on this admission. Coronavirus RT-PCR negative. Patient was eventually deescalated off nasal cannula on room air saturating 98% at the time of discharge. He will be discharged home with prescription for azithromycin x3- day for completion of total 5-day therapy. Medication was transmitted to his pharmacy. He was advised to follow-up with his primary care doctor in 3 to 5 days. (1) Acute respiratory failure with hypoxia Current Visit: Yes Status: Acute Plan to address problem: Patient is hypoxic on room air on admissoin Was initially on 2-3 L NC, now on room air again resting comfortably. Right upper lobe pneumonia (3) Severe Sepsis POA Current Visit: Yes Status: Acute Plan to address problem: leukocytosis 26K on admission, LA: 2.3 on admission. febrile, tachycardic No hypotension BCx, SCx, UCx IV Ceftriaxone and IV azithromycin IV fluids given on admission, can tolerate po, encourage po hydration. (2) Right upper lobe pneumonia Current Visit: Yes Status: Acute Plan to address problem: Community-acquired pneumonia CT Chest: Duoneb prn COVID negative Patient initiated on IV Zithromax and IV ceftriaxone (4) DVT prophylaxis Current Visit: Yes Status: Acute Plan to address problem: On anticoagulation and GI prophylaxis (5) Advance care planning Current Visit: Yes Status: Acute Plan to address problem: Disease education conducted, care plan discussed, diagnosis discussed, prognosis discussed. Patient is full code. Patient acknowledges understanding and agreement with care plan. +30 minutes. Disposition: 01 HOME / SELF CARE / HOMELESS Final Discharge Diagnosis (Prints w/discharge instructions): Community acquired pneumonia Time spent for discharge: 35 Core Measure Documentation - Palliative Care Palliative Care/ Comfort Measures: Not Applicable - Core Measures Any of the following diagnoses?: none Exam - Physical Exam Narrative exam: Physical Exam: VITAL SIGNS: Reviewed. GENERAL: The patient appears normally developed, Vital signs as documented. HEAD: No signs of head trauma. EYES: Pupils are equal. Extraocular motions intact. EARS: Hearing grossly intact. MOUTH: Oropharynx is normal. NECK: No adenopathy, no JVD. CHEST: Poor air movement in right upper lobe. CARDIAC: Regular rate and rhythm. S1 and S2, without murmurs, gallops, or rubs. VASCULAR: No Edema. Peripheral pulses normal and equal in all extremities. ABDOMEN: Soft, non tender and non distended. No rebound or guarding, and no masses palpated. Bowel Sounds normal. MUSCULOSKELETAL: Good range of motion of all major joints. Extremities without clubbing, cyanosis or edema. NEUROLOGIC EXAM: Alert and oriented x 4. no focal sensory or strength deficits. PSYCHIATRIC: Mood normal. SKIN: detail exam as documented in skin assessment - Constitutional Vitals: Temp Pulse Resp BP Pulse Ox 98.8 F 96 H 16 122/83 98 11/07/21 21:26 11/07/21 21:26 11/07/21 21:26 11/07/21 21:26 11/08/21 08:46 Plan Activity: no restrictions Weight Bearing Status: Full Weight Bearing Diet: regular Follow up with: PRIMARY CARE, [Primary Care Provider] - 3-5 Days Prescriptions: Azithromycin [Zithromax Z-LIANA] 250 mg PO DAILY 3 Days #3 tab
[2021-11-08] MEDS: HEPARIN 5,000 UNIT/1 ML VIAL SUB-Q SCH (09:41)
== END 2021-11-08 12:00 | disposition home or self-care (01) | DRG 871 ==
LOC: ED 12:28 → 3A 20:39
PROVIDERS: ADMIT Internal Medicine; ATTEND Internal Medicine
DX: A41.9 Sepsis, unspecified organism (principal); J16.8 Pneumonia due to other specified infectious organisms; J96.01 Acute respiratory failure with hypoxia; R65.20 Severe sepsis without septic shock; Z20.822 Contact with and (suspected) exposure to COVID-19
CPT/HCPCS: 36415; 71046; 71260; 80048; 80053; 82140; 82728; 83615; 84145; 84484; 85007; 85025; 85379; 86140; 87040; 93005; 94640; 94760; G0378; Q0162; J0456; J0696; J1100; J1644; J3010; J7030; Q9967; U0003